=== PATIENT | male | born 1975 | race Caucasian/White ===

== ENCOUNTER 2017-07-29 03:13 | Emergency (ER) | payer OTHER ==
[~2017-07-29] VITALS: Ht 177.8 cm; Wt 88.5 kg
[~2017-07-29 03:13] MED LIST: BENZ100A PO; LITH300C PO; LORPSEER24 PO; MELA3 PO; PROCODE120 PO; PRODEXEL PO
[2017-07-29] MEDS ORDERED: SINGULAIR (04:12)
[2017-07-29] MEDS ORDERED: ALBU90OI6 INH (04:12)
[2017-07-29] MEDS ORDERED: BENADRYL25 MG PO (04:45)
[2017-07-29] MEDS ORDERED: Prednisone50 MG PO (04:45)
[2017-07-29] MEDS ORDERED: CLOB.05TO TOP (04:45)
== END 2017-07-29 05:06 | disposition home or self-care (01) ==
LOC: ER 03:13
DX: L23.7 Allergic contact dermatitis due to plants, except food (principal); F31.9 Bipolar disorder, unspecified; F17.200 Nicotine dependence, unspecified, uncomplicated; Z88.0 Allergy status to penicillin; Z88.1 Allergy status to other antibiotic agents; Z79.899 Other long term (current) drug therapy
CPT/HCPCS: 96372; 99283; J1100; Q0163